=== PATIENT | female | born 1980 | race Hispanic/Latino ===

== ENCOUNTER 2017-12-19 13:30 | Inpatient (IN) | payer OTHER, MEDICAID ==
[~2017-12-19] VITALS: Ht 162.6 cm; Wt 73.0 kg
[2017-12-19 12:16] LABS: HEMATOCRIT 34.7 % (36-48); MEAN CORPUSCULAR HEMOGLOBIN 30.3 pg (27.0-33.0); MEAN CORPUSCULAR HGB CONC 35.9 g/dL (32.0-36.0); MEAN CORPUSCULAR VOLUME 84.4 fL (79-99); NUCLEATED RED BLOOD CELLS 0.2 % (0.0-0.19); PLATELET COUNT (AUTO) 315 K/uL (130-400); RED BLOOD CELL COUNT(AUTO) 4.12 MIL/uL (4.00-5.50); RED CELL DISTRIBUTION WIDTH 14.4 % (11.0-15.5); WHITE BLOOD COUNT (AUTO) 9.1 K/uL (4.8-10.8)
[2017-12-20] MEDS ORDERED: LACTATED RINGERS 1000ML 1,000 ML IV SCH (05:45)
[2017-12-20] MEDS ORDERED: CEFAZOLIN SODIUM 1 GM VIAL IVP PRN (05:45)
[2017-12-20] MEDS ORDERED: PREN1TAB26 PO (05:46)
[2017-12-20] MEDS ORDERED: CEFAZOLIN SODIUM 1 GM VIAL IVP ONE (07:30)
[2017-12-20] MEDS ORDERED: LIDOCAINE HCL 4% TOP SOL 50ML MM ONE (07:52)
[2017-12-20] MEDS ORDERED: DEXAMETHASONE SOD PHOSPHATE 10MG/ML 1ML VIAL ONE (07:52)
[2017-12-20] MEDS ORDERED: LIDOCAINE HCL-MPF 2% 10ML AMP IJ ONE (07:52)
[2017-12-20] MEDS ORDERED: LIDOCAINE HCL MPF 1% 5ML VIAL ONE (07:52)
[2017-12-20] MEDS ORDERED: PHENYLEPHRINE HCL 10 MG/ML 1ML VIAL IV ONE (07:52)
[2017-12-20] MEDS ORDERED: OXYTOCIN 10 USP UNITS/ML ONE ×2 (07:52→08:51)
[2017-12-20] MEDS ORDERED: ONDANSETRON HCL 4 MG/2 ML VIAL IVP PRN ×2 (09:00)
[2017-12-20] MEDS ORDERED: DiphenhydrAMINE HCL 50 MG/ML VIAL IVP PRN (09:00)
[2017-12-20] MEDS ORDERED: EPHEDRINE SULFATE 50 MG/ML AMPULE IVP PRN (09:00)
[2017-12-20] MEDS ORDERED: ONDANSETRON HCL 4 MG/2 ML 8 MG in SODIUM CHLORIDE 0.9% 50 ML IVP NR (09:00)
[2017-12-20] MEDS ORDERED: NALOXONE HCL 0.4 MG/1 ML ML IVP PRN (09:00)
[2017-12-20] MEDS ORDERED: MORPHINE SULFATE 2 MG/ML 1ML SYG IVP PRN (09:00)
[2017-12-20] MEDS ORDERED: METOCLOPRAMIDE 10 MG/2 ML VIAL IVP PRN (09:00)
[2017-12-20] MEDS ORDERED: HYDROCODONE/ACETAMINOPHEN 5/325 MG TAB PO PRN (09:00)
[2017-12-20] MEDS ORDERED: PROMETHAZINE HCL 25 MG/ML 1ML AMPULE IM PRN ×2 (09:00→10:15)
[2017-12-20] MEDS ORDERED: MEPERIDINE-PF 25 MG/ML SYG ONE (09:53)
[2017-12-20 10:05] VITALS: BP 108/62
[2017-12-20] MEDS ORDERED: OXYTOCIN-LR 20 UNITS/1000 ML 1,000 ML IV PRN (10:07)
[2017-12-20] MEDS ORDERED: SODIUM CHLORIDE 0.9% 10 ML VIAL IVP PRN (10:15)
[2017-12-20] MEDS ORDERED: MEPERIDINE-PF 75 MG/ML SYG IM PRN (10:15)
[2017-12-20] MEDS: INSULIN HUMULIN R 100 UNIT/ML 3ML SQ SCH ×2 (11:30→16:30)
[2017-12-20 11:36] VITALS: BP 105/60
[2017-12-20 15:54] VITALS: BP 103/64
[2017-12-20] MEDS: SODIUM CHLORIDE 0.9% 1000ML 1,000 ML IV SCH ×2 (16:50→21:06)
[2017-12-20 19:55] VITALS: BP 100/59
[2017-12-20] MEDS: HYDROCODONE/ACETAMINOPHEN 5/325 MG TAB PO PRN (20:47)
[2017-12-20 23:32] VITALS: BP 99/60
[2017-12-21 03:52] VITALS: BP 98/63
[2017-12-21 05:27] LABS: HEMATOCRIT 28.5 % (36-48); MEAN CORPUSCULAR HEMOGLOBIN 30.6 pg (27.0-33.0); MEAN CORPUSCULAR HGB CONC 36.4 g/dL (32.0-36.0); MEAN CORPUSCULAR VOLUME 84.1 fL (79-99); PLATELET COUNT (AUTO) 228 K/uL (130-400); RED BLOOD CELL COUNT(AUTO) 3.39 MIL/uL (4.00-5.50); RED CELL DISTRIBUTION WIDTH 14.5 % (11.0-15.5); WHITE BLOOD COUNT (AUTO) 10.4 K/uL (4.8-10.8)
[2017-12-21] MEDS: HYDROCODONE/ACETAMINOPHEN 5/325 MG TAB PO PRN (06:17)
[2017-12-21] MEDS: SODIUM CHLORIDE 0.9% 1000ML 1,000 ML IV SCH (06:21)
[2017-12-21 07:59] VITALS: BP 97/64
[2017-12-21] MEDS ORDERED: ACETAMINOPHEN EXTRA STRENGTH 500 MG TABLET PO PRN (09:00)
[2017-12-21] MEDS ORDERED: BISACODYL 10 MG SUPP.RECT RC PRN (09:00)
[2017-12-21] MEDS ORDERED: ACETAMINOPHEN-CODEINE 300/30MG TAB PO PRN (09:00)
[2017-12-21] MEDS ORDERED: LANOLIN 30GM OINTMENT TP PRN (09:00)
[2017-12-21] MEDS: SIMETHICONE 80 MG TAB.CHEW PO PRN ×3 (10:08→21:15)
[2017-12-21] MEDS: DOCUSATE SODIUM 100 MG CAP PO SCH ×2 (10:08→21:15)
[2017-12-21] MEDS: DIPH,PERTUSS(ACELL),TET VAC/PF 0.5 ML VIAL IM SCH (10:09)
[2017-12-21] MEDS: IBUPROFEN 600 MG TABLET PO PRN ×3 (10:09→23:36)
[2017-12-21 12:06] VITALS: BP 101/62
[2017-12-21] MEDS ORDERED: AMMONIA 1 EA AMP IH ONE (12:44)
[2017-12-21 15:59] VITALS: BP 93/62
[2017-12-21 19:40] VITALS: BP 118/65
[2017-12-21] MEDS: INSULIN HUMULIN R 100 UNIT/ML 3ML SQ SCH (21:00)
[2017-12-21 23:37] VITALS: BP 94/63
[2017-12-22 03:25] VITALS: BP 115/55
[2017-12-22] MEDS: HYDROCODONE/ACETAMINOPHEN 5/325 MG TAB PO PRN (04:43)
[2017-12-22] MEDS: INSULIN HUMULIN R 100 UNIT/ML 3ML SQ SCH ×2 (07:30→11:30)
[2017-12-22 07:55] VITALS: BP 90/63
[2017-12-22] MEDS: SODIUM CHLORIDE 0.9% 1000ML 1,000 ML IV SCH (08:47)
[2017-12-22] MEDS: DOCUSATE SODIUM 100 MG CAP PO SCH (08:58)
[2017-12-22] MEDS: SIMETHICONE 80 MG TAB.CHEW PO PRN (08:58)
[2017-12-22] MEDS: IBUPROFEN 600 MG TABLET PO PRN (08:59)
[2017-12-22] MEDS: DIPH,PERTUSS(ACELL),TET VAC/PF 0.5 ML VIAL IM SCH (09:00)
[2017-12-30 10:23] LABS: HEPATITIS Bs ANTIGEN SCREEN P SSR (Negative)
== END 2017-12-22 13:55 | disposition home or self-care (01) | DRG 540 ==
LOC: EDSTATUS 13:30 → LDH 12-20 05:36 → WSH 12-20 10:01
PROVIDERS: ADMIT Obstetrics & Gynecology; ATTEND Obstetrics & Gynecology
PROC: 10D00Z1 Extraction of Products of Conception, Low, Open Approach (ICD-10-PCS; principal; 2017-12-20 09:05)
DX: O34.211 Maternal care for low transverse scar from previous cesarean delivery (principal); D62 Acute posthemorrhagic anemia; O24.419 Gestational diabetes mellitus in pregnancy, unspecified control; O90.81 Anemia of the puerperium; O69.81X0 Labor and delivery complicated by cord around neck, without compression, not applicable or unspecified; Z3A.38 38 weeks gestation of pregnancy; Z28.21 Immunization not carried out because of patient refusal; Z83.3 Family history of diabetes mellitus; Z90.49 Acquired absence of other specified parts of digestive tract
CPT/HCPCS: 36415; 59510; 82948; 85027; 86592; 86850; 86900; 86901; 87340; 90715; A4344; A4450; A4606; J0690; J1100; J2175; J2370; J2590; J3490; J7030; J7120